=== PATIENT | female | born 2000 | race Caucasian/White ===

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

== ENCOUNTER → 2025-03-18 | Outpatient (CLI) | payer OTHER, SELFPAY ==
[2025-03-18 12:47] LABS: Hemoglobin A1c 5.1 % (<=5.6)
[2025-03-18 13:07] LABS: Cholesterol 139 mg/dL (<=190); High Density Lipoprotein 43 mg/dL; Low Density Lipoprotein Calc. 82 mg/dL; Triglycerides 70 mg/dL; Very Low Density Lipoprotein 14 mg/dL (5-40); cholesterol:hdl ratio screen 3.25
[2025-03-18 13:09] LABS: Vitamin D,25 Hydroxy 7.7 ng/mL (30-100)
[2025-03-20 23:07] LABS: Chlamydia By Nucleic Acid AMP Negative (Negative); Gonococcus By Nucleic Acid AMP Negative (Negative)
[2025-03-23 15:23] LABS: HPV Reflexed? NOT INDICATED
== END | disposition home or self-care (01) ==
PROVIDERS: Referring Provider Advanced Practice Midwife; Visit Provider Advanced Practice Midwife
DX: Z00.00 Encounter for general adult medical examination without abnormal findings (principal); Z11.3 Encounter for screening for infections with a predominantly sexual mode of transmission; Z13.220 Encounter for screening for lipoid disorders; Z13.29 Encounter for screening for other suspected endocrine disorder; Z13.21 Encounter for screening for nutritional disorder; Z13.1 Encounter for screening for diabetes mellitus
CPT/HCPCS: 36415; 80061; 82306; 83036; 84443; 87491; 87591; 88175; G0145